=== PATIENT | female | born 1965 | race Caucasian/White ===

== ENCOUNTER 2017-03-01 06:42 | Day surgery (SDC) | payer OTHER ==
[~2017-03-01] VITALS: Ht 154.9 cm; Wt 54.0 kg
[2017-03-01] VITALS (15 sets, daily range): BP systolic 114–129; BP diastolic 77–85; PULSE 58–68; RESP 17–20; Ht 154.9 cm; Wt 54.0 kg
[2017-03-01] MEDS ORDERED: BUPIVACAINE 0.75% (MPF) 10 ML INJ ONE (06:52)
[2017-03-01] MEDS ORDERED: TIMOLOL 0.5% 5 ML OPH ONE (06:52)
[2017-03-01] MEDS ORDERED: EPINEPHrine 1 MG INJ ONE (06:52)
[2017-03-01] MEDS ORDERED: LIDOCAINE 2% (SDV) 5 ML INJ ONE ×2 (06:52→08:59)
[2017-03-01] MEDS ORDERED: LIDOCAINE 1% (MPF) 10 ML INJ ONE (06:52)
[2017-03-01] MEDS ORDERED: SDSNEV LEFT EYE (07:26)
[2017-03-01] MEDS ORDERED: OFLO5DRO46 LEFT EYE (07:27)
[2017-03-01] MEDS ORDERED: PRD1OP5 LEFT EYE (07:28)
[2017-03-01] MEDS ORDERED: PHENYLephrine 10% 5 ML OPH OPER SCH (08:00)
[2017-03-01] MEDS ORDERED: MOXIFLOXACIN 0.5% 3 ML OPH OPER SCH (08:00)
[2017-03-01] MEDS ORDERED: CYCLOPENTOLATE 2% 2 ML OPH OPER SCH (08:00)
[2017-03-01] MEDS ORDERED: NEPAFENAC 0.1% 3 ML OPH OPER SCH (08:00)
--- NOTE | 2017-03-01 08:38 | HPN ---
Date/Time of Note Date/Time of Note DATE: 03/01/17 TIME: 08:37 Interval H&P Admission Note Pt. seen H&P reviewed: No system changes WALKER LAWSON MD Mar 01, 2017 08:38
[2017-03-01] MEDS ORDERED: LIDOCAINE 1% (MPF) 10 ML INJ INJ ONE (08:50)
[2017-03-01] MEDS ORDERED: PHENYLephrine 10% 5 ML OPH OPER ONE (08:50)
[2017-03-01] MEDS ORDERED: MIDAZOLAM 1 MG/ML 2 ML INJ ONE (08:59)
[2017-03-01] MEDS ORDERED: FENTAnyl 50 MCG/ML VIAL ONE (08:59)
[2017-03-01] MEDS ORDERED: PROPOFOL 20 ML ONE (08:59)
[2017-03-01] MEDS ORDERED: TIMOLOL 0.5% 5 ML OPH LEFT EYE ONE (09:20)
[2017-03-01] MEDS ORDERED: MEPERIDINE 25 MG INJ IV PRN (10:00)
[2017-03-01] MEDS ORDERED: PROCHLORPERAZINE 10 MG INJ IV PRN (10:00)
[2017-03-01] MEDS ORDERED: FENTAnyl 50 MCG/ML VIAL IV PRN (10:00)
[2017-03-01] MEDS ORDERED: HYDROmorphONE (0.2 MG/ML) 10ML SYG IV PRN (10:00)
[2017-03-01] MEDS ORDERED: OXYCODONE/ACETAMINOPHEN (5/325) TAB PO PRN (10:00)
[2017-03-01] MEDS ORDERED: DIPHENHYDRAMINE 50 MG INJ IV PRN (10:00)
[2017-03-01] MEDS ORDERED: ONDANSETRON 4 MG INJ IV PRN (10:00)
--- NOTE | 2017-03-01 10:07 | SIPON ---
Date/Time of Note Date/Time of Note DATE: 03/01/17 TIME: 08:38 Operative Report Preoperative Diagnosis senile cataract left eye Postoperative Diagnosis same Operation/Procedure Performed cataract extraction with lens implaNT Surgeon see signature line endodontic assistant NONE Anesthesia: MAC Estimated blood loss: none Transfusion Required none Specimen NONE Grafts/Implants LENS IMPLANTnone Complications none WALKER LAWSON MD Mar 01, 2017 10:07
--- NOTE | 2017-03-01 10:07 | SIPON ---
Date/Time of Note Date/Time of Note DATE: 03/01/17 TIME: 08:38 Operative Report Preoperative Diagnosis senile cataract left eye Postoperative Diagnosis same Operation/Procedure Performed cataract extraction with lens implaNT Surgeon see signature line ict sales assistant NONE Anesthesia: MAC Estimated blood loss: none Transfusion Required none Specimen NONE Grafts/Implants LENS IMPLANTnone Complications none WALKER LAWSON MD Mar 01, 2017 10:07
--- NOTE | 2017-03-01 10:07 | SIPON ---
Date/Time of Note Date/Time of Note DATE: 03/01/17 TIME: 08:38 Operative Report Preoperative Diagnosis senile cataract left eye Postoperative Diagnosis same Operation/Procedure Performed cataract extraction with lens implaNT Surgeon see signature line equity sales assistant NONE Anesthesia: MAC Estimated blood loss: none Transfusion Required none Specimen NONE Grafts/Implants LENS IMPLANTnone Complications none WALKER LAWSON MD Mar 01, 2017 10:07
--- NOTE | 2017-03-01 13:50 | OPR ---
DATE OF OPERATION: SURGEON: Walker Anaya MD [employer]ERA OPERATOR: None. ANESTHESIOLOGIST: PREOPERATIVE DIAGNOSIS: Senile nuclear sclerotic cataract left eye. POSTOPERATIVE DIAGNOSIS: Senile nuclear sclerotic cataract, left eye. OPERATION: Kelman phacoemulsification with implantation of intraocular lens left eye. DESCRIPTION OF PROCEDURE: Following standard preparation and draping of the patient, a lid speculum was placed for immobilization of the lids. A SuperBlade incision was made at the corneal limbal ju nction for access into the anterior chamber. Approximately 0.03 mL of nonpreserved 1% Xylocaine was instilled into the anterior chamber, and after approximately 5 to 10 seconds, this was replaced wit h Viscoat. A clear corneal incision was then made using the 3.2 mm keratome, following which an ant erior circular capsulorrhexis was made. The major portion of the lens cortex and nucleus were then dislocated from the capsular bag using hydrodissection. The KPE tip was introduced into the eye and controlling tumbling of the lens with a 2-handed technique, the major portion of the lens cortex an d nucleus was removed, maintaining the lens in the plane of the iris. The remaining cortical materi al was removed via the irrigating aspirating instrument. The capsular bag and the anterior chamber were now reformed using Viscoat. The proper power lens was then placed in the capsular bag. The vi scoelastic was then removed from the eye and the eye reformed with balanced salt solution. One 10-0 Vicryl suture was then used to ensure closure of the corneal incision. The eye was reformed to nor mal pressure using balanced salt solution. The eye and cul-de-sacs were now simply flooded with 5% Betadine solution. One drop of Vigamox and 1 drop of Betagan solution were instilled into the eye. A light pressure dressing was applied, and the patient was returned to the recovery room in satisfa ctory condition. Dictated By: WALKER LYON/YAN Conf#: [id number] DID#: [id number]
== END 2017-03-01 11:40 | disposition home or self-care (01) ==
LOC: SDS 06:42
PROVIDERS: ATTEND Ophthalmology
DX: H25.12 Age-related nuclear cataract, left eye (principal); E78.5 Hyperlipidemia, unspecified
CPT/HCPCS: 66984; J0171; J2250; J3010; V2632; Z7512; Z7610